=== PATIENT | female | born 1970 | race Caucasian/White ===

== ENCOUNTER 2016-07-18 02:44 | Observation (INO) | payer OTHER ==
[2016-07-18] MEDS ORDERED: Aspirin 81 MG Tab.Chew PO ONE (03:01)
[2016-07-18] MEDS ORDERED: Ketorolac 30 MG/ML SDV IVPUSH ONE (03:01)
[2016-07-18] MEDS ORDERED: Sodium Chloride 0.9% 1,000 ML IV ONE (03:01)
[2016-07-18] MEDS ORDERED: Ondansetron 4 MG/2 ML SDV IVPUSH ONE (03:01)
[2016-07-18] MEDS ORDERED: Nitroglycerin 0.4 MG Tab.SL SL ONE (03:02)
[2016-07-18] MEDS ORDERED: Nitroglycerin 0.4 MG Tab.SL ONE (03:04)
--- NOTE | 2016-07-18 03:04 | EDM.PDOC ---
ED HPI GENERAL MEDICAL PROBLEM - General Chief Complaint: Chest Pain Stated Complaint: CHEST PAIN Time Seen by Provider: 07/18/16 03:02 - History of Present Illness INITIAL COMMENTS - FREE TEXT/NARRATIVE: HISTORY AND PHYSICAL: History of present illness: Rations 46-year-old female present to insert a lower chest discomfort she described it as a band around her chest that started about 7 PM she had some nausea denies shortness of breath palpitations diaphoresis or other concerns she is a nonsmoker has no known history of coronary artery disease she has no GI history but reported either. She states she felt earlier that she might just eaten too much tonight. Review of systems: As per history of present illness and below otherwise all systems reviewed and negative. Past medical history: As per history of present illness and as reviewed below otherwise noncontributory. Surgical history: As per history of present illness and as reviewed below otherwise noncontributory. Social history: No reported history of drug or alcohol abuse. Family history: As per history of present illness and as reviewed below otherwise noncontributory. Physical exam: HEENT: Atraumatic, normocephalic, pupils reactive, negative for conjunctival pallor or scleral icterus, mucous membranes moist, throat clear, neck supple, nontender, trachea midline. Lungs: Clear to auscultation, breath sounds equal bilaterally, chest nontender. Heart: S1S2, regular, negative for clicks, rubs, or JVD. Abdomen: Soft, nondistended, nontender. Negative for masses or hepatosplenomegaly. Negative for costovertebral tenderness. Pelvis: Stable nontender. Genitourinary: Deferred. Rectal: Deferred. Extremities: Atraumatic, negative for cords or calf pain. Neurovascular unremarkable. Neuro: Awake, alert, oriented. Cranial nerves II through XII unremarkable. Cerebellum unremarkable. Motor and sensory unremarkable throughout. Exam nonfocal. Diagnostics: CBC CMP troponin PT/INR lipase chest x-ray EKG Therapeutics: IV O2 monitor aspirin 324 mg nitroglycerin sublingual Toradol 30 mg IV Impression: #1 chest pain Definitive disposition and diagnosis as appropriate pending reevaluation and review of above. - Related Data Allergies Allergy/AdvReac Type Severity Reaction Status Date / Time No Known Allergies Allergy Verified 07/18/16 03:02 Home Meds: Home Meds . [No Known Home Meds] 07/18/16 [History] ED ROS GENERAL - Review of Systems Review Of Systems: ROS reveals no pertinent complaints other than HPI. ED EXAM, GENERAL - Physical Exam Exam: See Below (See dictation) Course - Vital Signs Last Recorded V/S: Last Vital Signs Temp 36.6 C 07/18/16 03:06 Pulse 64 07/18/16 04:11 Resp 20 07/18/16 04:11 BP 118/75 07/18/16 04:11 Pulse Ox 98 07/18/16 04:11 - Orders/Labs/Meds Orders: Active Orders 24 hr Category Date Time Status Cardiac Monitoring [RC] . DIRECTED Care 07/18/16 02:56 Active EKG Documentation Completion [RC] STAT Care 07/18/16 02:56 Active Chest 1V Frontal [CR] Stat Exams 07/18/16 02:57 Taken Gallbladder [Abdomen Ltd] [US] Stat Exams 07/18/16 03:57 Taken Labs: Laboratory Tests 07/18/16 07/18/16 07/18/16 Range/Units 02:50 02:50 02:50 WBC 11.22 H (4.0-11.0) K/uL RBC 4.53 (4.30-5.90) M/uL Hgb 13.3 (12.0-16.0) g/dL Hct 39.5 (36.0-46.0) % MCV 87.2 (80.0-98.0) fL MCH 29.4 (27.0-32.0) pg MCHC 33.7 (31.0-37.0) g/dL RDW Std Deviation 41.8 (28.0-62.0) fl RDW Coeff of Adrien 13 (11.0-15.0) % Plt Count 293 (150-400) K/uL MPV 10.10 (7.40-12.00) fL Neut % (Auto) 74.9 (48.0-80.0) % Lymph % (Auto) 19.0 (16.0-40.0) % Blaine % (Auto) 5.8 (0.0-15.0) % Eos % (Auto) 0.1 (0.0-7.0) % Baso % (Auto) 0.2 (0.0-1.5) % Neut # 8.4 H (1.4-5.7) K/uL Lymph # 2.1 (0.6-2.4) K/uL Blaine # 0.7 (0.0-0.8) K/uL Eos # 0.0 (0.0-0.7) K/uL Baso # 0.0 (0.0-0.1) K/uL Nucleated RBC % 0.0 /100WBC Nucleated RBCs # 0 K/uL INR 1.03 (0.86-1.11) Sodium 138 (136-146) mmol/L Potassium 4.3 (3.5-5.1) mmol/L Chloride 105 (98-110) mmol/L Carbon Dioxide 22 (21-31) mmol/L BUN 16 (6.0-23.0) mg/dL Creatinine 0.9 (0.6-1.5) mg/dL Est Cr Clr Drug Dosing 68.88 mL/min Estimated GFR (MDRD) > 60.0 ml/min Glucose 126 H (60-110) mg/dL Calcium 9.6 (8.8-10.8) mg/dL Total Bilirubin 0.4 (0.1-1.5) mg/dL AST 25 (5-40) IU/L ALT 19 (8-54) IU/L Alkaline Phosphatase 64 (40-150) CK-MB (CK-2) 0.8 (0-6.6) ng/ml Troponin I (0.0-0.29) NG/ML Total Protein 7.8 (6.0-8.0) g/dL Albumin 4.3 (3.5-5.0) g/dL Globulin 3.5 (2.0-3.5) g/dL Albumin/Globulin Ratio 1.2 L (1.3-2.8) Lipase (7-80) U/L 07/18/16 07/18/16 Range/Units 02:50 02:50 WBC (4.0-11.0) K/uL RBC (4.30-5.90) M/uL Hgb (12.0-16.0) g/dL Hct (36.0-46.0) % MCV (80.0-98.0) fL MCH (27.0-32.0) pg MCHC (31.0-37.0) g/dL RDW Std Deviation (28.0-62.0) fl RDW Coeff of Adrien (11.0-15.0) % Plt Count (150-400) K/uL MPV (7.40-12.00) fL Neut % (Auto) (48.0-80.0) % Lymph % (Auto) (16.0-40.0) % Blaine % (Auto) (0.0-15.0) % Eos % (Auto) (0.0-7.0) % Baso % (Auto) (0.0-1.5) % Neut # (1.4-5.7) K/uL Lymph # (0.6-2.4) K/uL Blaine # (0.0-0.8) K/uL Eos # (0.0-0.7) K/uL Baso # (0.0-0.1) K/uL Nucleated RBC % /100WBC Nucleated RBCs # K/uL INR (0.86-1.11) Sodium (136-146) mmol/L Potassium (3.5-5.1) mmol/L Chloride (98-110) mmol/L Carbon Dioxide (21-31) mmol/L BUN (6.0-23.0) mg/dL Creatinine (0.6-1.5) mg/dL Est Cr Clr Drug Dosing mL/min Estimated GFR (MDRD) ml/min Glucose (60-110) mg/dL Calcium (8.8-10.8) mg/dL Total Bilirubin (0.1-1.5) mg/dL AST (5-40) IU/L ALT (8-54) IU/L Alkaline Phosphatase (40-150) CK-MB (CK-2) (0-6.6) ng/ml Troponin I < 0.10 (0.0-0.29) NG/ML Total Protein (6.0-8.0) g/dL Albumin (3.5-5.0) g/dL Globulin (2.0-3.5) g/dL Albumin/Globulin Ratio (1.3-2.8) Lipase 31 (7-80) U/L Meds: Medications Discontinued Medications Generic Name Dose Route Start Last Admin Trade Name Freq PRN Reason Stop Dose Admin Aspirin 324 mg 07/18/16 03:01 07/18/16 03:12 Aspirin PO 07/18/16 03:02 324 mg ONETIME ONE Administration Sodium Chloride 1,000 mls @ 999 mls/hr 07/18/16 03:01 07/18/16 03:16 Normal Saline IV 07/18/16 04:01 999 mls/hr STAT ONE Administration Ketorolac Tromethamine 30 mg 07/18/16 03:01 07/18/16 03:16 Toradol IVPUSH 07/18/16 03:02 30 mg ONETIME ONE Administration Morphine Sulfate 2 mg 07/18/16 04:03 07/18/16 04:10 Morphine IVPUSH 07/18/16 04:04 2 mg ONETIME ONE Administration Nitroglycerin Confirm 07/18/16 03:04 07/18/16 04:04 Nitrostat Administered 07/18/16 03:05 Not Given Dose 0.4 mg .ROUTE .STK-MED ONE Nitroglycerin 0.4 mg 07/18/16 03:02 07/18/16 03:15 Nitrostat SL 07/18/16 03:03 0.4 mg ONETIME ONE Administration Ondansetron HCl 4 mg 07/18/16 03:01 07/18/16 03:10 Zofran IVPUSH 07/18/16 03:02 4 mg ONETIME ONE Administration Departure - Departure Time of Disposition: 06:00 Disposition: Admitted As Inpatient 68 Condition: good Clinical Impression: Cholelithiasis, Abnormal EKG Forms: ED Department Discharge - My Orders Last 24 Hours: My Active Orders 07/18/16 02:56 Cardiac Monitoring [RC] . DIRECTED EKG Documentation Completion [RC] STAT 07/18/16 02:57 Chest 1V Frontal [CR] Stat 07/18/16 03:57 Gallbladder [Abdomen Ltd] [US] Stat - Assessment/Plan Last 24 Hours: My Active Orders 07/18/16 02:56 Cardiac Monitoring [RC] . DIRECTED EKG Documentation Completion [RC] STAT 07/18/16 02:57 Chest 1V Frontal [CR] Stat 07/18/16 03:57 Gallbladder [Abdomen Ltd] [US] Stat
[2016-07-18 03:24] LABS: CHLORIDE,CL 105 mmol/L (98-110); SODIUM,NA 138 mmol/L (136-146)
[2016-07-18] MEDS ORDERED: Morphine 10 MG/ML Syringe IVPUSH ONE (03:57)
[2016-07-18] MEDS ORDERED: Morphine 2 MG/ML Syringe IVPUSH ONE (04:03)
[2016-07-18] MEDS ORDERED: Morphine 10 MG/ML Syringe IVPUSH PRN (08:15)
[2016-07-18] MEDS ORDERED: Ondansetron 4 MG/2 ML SDV IVPUSH PRN (08:16)
[2016-07-18] MEDS ORDERED: Sodium Chloride 0.9% 1,000 ML IV SCH (08:30)
--- NOTE | 2016-07-18 08:31 | PCM.HP ---
<Vangie Redd M - Last Filed: 07/18/16 15:00> H&P History of Present Illness - General Date of Service: 07/18/16 Admit Problem/Dx: Admission Diagnosis/Problem Admission Diagnosis/Problem Cholelithiasis Source of Information: Patient History Limitations: Reports: No limitations - History of Present Illness Initial Comments - Free Text/Narative: This 46 year year old female with no significant pmh presented to the ED early this morning with concerns of upper abdominal/chest pain. She reports yesterday she made homemade lefse and ate "a bunch of it" with margarine on it. She then felt extremely full, slightly nauseated, felt like she had a belt around her high waist. This pain felt under her ribs and radiated to her back. She reports the pain continued to worsen throughout the day and she was unable to sleep through the pain and decided to come to the ER. She has been losing weight and has lost a large amount of weight. She is eats a low fat diet at home. She does not use tobacco products, drink alcohol or recreational drug use. In the ED, slight leukocytosis noted, 11,000. AST/ALT WNL. Troponin negative. EKG SR [address] segment changes. RUQ US obtained which revealed cholelithaisis, common bile duct 5 mm, diffuse fatty infiltration of liver. She will be admitted for observation due to chest pain R/O and cholelithasis. chest area Pain Score (Numeric/FACES): 3 - Related Data Allergies/Adverse Reactions: Allergies Allergy/AdvReac Type Severity Reaction Status Date / Time No Known Allergies Allergy Verified 07/18/16 03:02 Home Medications: Home Meds Bacillus Coagulans [Digestive Advantage] 1 tab PO DAILY 07/18/16 [History] Biotin 5 mg PO 07/18/16 [History] Past Medical History HEENT History: Reports: None Cardiovascular History: Reports: None. Denies: Afib, Blood clots/VTE/DVT, CAD, High cholesterol, Hypertension, [place] Respiratory History: Reports: None. Denies: Asthma, COPD, [place] Gastrointestinal History: Reports: None. Denies: GERD, GI bleed Genitourinary History: Reports: None. Denies: Acute renal failure, Chronic renal insuffiency [employer] History: Reports: Musculoskeletal History: Reports: None Neurological History: Reports: None. Denies: CVA, MS, TIA Psychiatric History: Reports: None Endocrine/Metabolic History: Reports: None. Denies: Diabetes, type II, Hypothyroidism, Obesity/BMI 30+ Hematologic History: Reports: None Oncologic (Cancer) History: Reports: None Dermatologic History: Reports: Other (see below) (Rosacea) - Infectious Disease History Infectious Disease History: Reports: Chicken pox - Past Surgical History Female Surgical History: Reports: Hysterectomy Social & Family History - Family History Family Medical History: Noncontributory - Tobacco Use Smoking Status *Q: Never Smoker Second Hand Smoke Exposure: No - Caffeine Use Caffeine Use: Reports: Coffee - Alcohol Use Alcohol Use History: No - Recreational Drug Use Recreational Drug Use: No H&P Review of Systems - Review of Systems: Review Of Systems: See Below General: Reports: no symptoms. Denies: fever, chills, malaise HEENT: Reports: no symptoms. Denies: headaches, post nasal drip, sinus congestion Cardiovascular: Reports: chest pain (epigastric). Denies: palpitations, edema, syncope Gastrointestinal: Reports: Abdominal pain, Nausea. Denies: Black stool, Bloody stool, Vomiting Genitourinary: Reports: no symptoms. Denies: dysuria, frequency, burning Musculoskeletal: Reports: no symptoms Skin: Reports: erythema (Rosacea exacerbation to cheeks) Psychiatric: Reports: no symptoms Neurological: Reports: no symptoms Hematologic/Lymphatic: Reports: no symptoms Immunologic: Reports: no symptoms Exam - Exam Exam: See Below - Vital Signs Vital Signs: Last Vital Signs Temp 96.6 F 07/18/16 06:25 Pulse 62 07/18/16 06:25 Resp 18 07/18/16 06:25 BP 118/76 07/18/16 06:25 Pulse Ox 100 07/18/16 06:25 Weight: 154 lb 11.2 oz - Exam Quality Assessment: DVT prophylaxis. No: supplemental oxygen General: alert, oriented, cooperative HEENT: PERRLA, Hearing intact, Mucosa moist & pink, Nares patent, Normal nasal septum, Posterior pharynx clear, Conjunctiva clear, EOMI, EACs clear, TMs clear Neck: supple, trachea midline, 2 Lungs: Clear to auscultation, Normal respiratory effort Cardiovascular: regular rate, regular rhythm, normal S1, normal S2 Abdomen: normal bowel sounds, soft, tenderness (slight tenderness to epigastric and RUQ, has improved greatly since ED), Mckinney's sign. No: organomegaly Extremities: normal inspection, normal pulses Neuro Extensive - Mental Status: alert, oriented x3, normal mood/affect, normal cognition Neuro Extensive - Motor, Sensory, Reflexes: CN II-XII intact, normal gait, normal reflexes Psychiatric: alert, normal affect, normal mood - Patient Data Result Diagrams: 07/18/16 14:27 07/18/16 02:50 EKG INTERPRETATION EKG Date: 07/18/16 Rhythm: NSR Rate (beats/min): 69 [place]: normal P-wave: present QRS: normal ST-T: normal QT: normal Comparison: NA - no prior EKG *Q Meaningful Use (ADM) - VTE *Q VTE Criteria *Q: - VTE Risk Assess *Q Each Risk Factor Represents 1 Point: Age 41 - 59 years Total Score 1 Point Risk Factors: 1 Each Risk Factor Represents 2 Points: None Total Score 2 Point Risk Factors: 0 Each Risk Factor Represents 3 Points: None Total Score 3 Point Risk Factors: 0 Each Risk Factor Represents 5 Points: None Total Score 5 Point Risk Factors: 0 Venous Thromboembolism Risk Factor Score *Q: 1 - Stroke *Q Stroke Criteria *Q: - AMI *Q AMI Criteria *Q: - Problem List (1) Atypical chest pain SNOMED Code(s): 210650792 ICD Code: R07.89 - OTHER CHEST PAIN Status: Acute (2) Cholelithiasis SNOMED Code(s): 286246131 ICD Code: K80.20 - CALCULUS OF GALLBLADDER W/O CHOLECYSTITIS W/O OBSTRUCTION Status: Acute Qualifiers: Cholelithiasis location: gallbladder Cholecystitis presence: without cholecystitis Biliary obstruction: without biliary obstruction Qualified Code(s): K80.20 - Calculus of gallbladder without cholecystitis without obstruction Problem List Initiated/Reviewed/Updated: Yes Orders Last 24hrs: Active Orders 24 hr Category Date Time Status Antiembolic Devices [RC] PER UNIT ROUTINE Care 07/18/16 08:16 Active Intake and Output [RC] QSHIFT Care 07/18/16 08:15 Active Oxygen Therapy [RC] PRN Care 07/18/16 08:15 Active Telemetry Monitoring [Cardiac Monitoring] [RC] . Care 07/18/16 06:15 Active DIRECTED Up to Chair [RC] ASDIRECTED Care 07/18/16 08:15 Active VTE/DVT Education [RC] PER UNIT ROUTINE Care 07/18/16 08:15 Active Vital Signs [RC] Q4H Care 07/18/16 08:15 Active Clear Liquid Diet [DIET] Diet 07/18/16 Breakfast Active GLYCOSYLATED HEMOGLOBIN,HGBA1C [CHEM] Routine Lab 07/18/16 08:16 Ordered LIPID PANEL [CHEM] Routine Lab 07/18/16 08:16 Ordered TROPONIN I [CHEM] Q6H Lab 07/18/16 08:30 Ordered TROPONIN I [CHEM] Q6H Lab 07/18/16 14:30 Ordered Morphine Med 07/18/16 08:15 Active 2 mg IVPUSH Q2H PRN Ondansetron [Zofran] Med 07/18/16 08:16 Active 4 mg IVPUSH Q4H PRN Sodium Chloride 0.9% [Normal Saline] 1,000 ml Med 07/18/16 08:30 Active IV ASDIRECTED Sequential Compression Device [OM.PC] Per Unit Routine Oth 07/18/16 08:16 Ordered Resuscitation Status Routine Resus Stat 07/18/16 08:15 Ordered Medication Orders Sodium Chloride (Normal Saline) 1,000 mls @ 125 mls/hr IV ASDIRECTED BIPIN Morphine Sulfate (Morphine) 2 mg IVPUSH Q2H PRN PRN Reason: Pain (severe 7-10) Ondansetron HCl (Zofran) 4 mg IVPUSH Q4H PRN PRN Reason: Nausea Assessment/Plan Comment:: This 46 year old female admitted for chest pain r/o ACS and cholelithiasis 1. Chest pain: Lipid panel and A1c drawn. A1c 5.5 and LDL 90, HDL 61. Trop x2 negative. Telemetry SR with no ST segment changes. Not having chest pain, more upper abdomen and RUQ. 2. Cholelithiasis: May have passed a stone. Pain is drastically improved this morning. She received 1 dose of Morphine in the ED. Tolerating CL diet. Spoke with Dr. Liang regarding patient. He recommends if afebrile and no elevated WBC and no cholecystitis she can follow up in the clinic with him next week to schedule elective cholecystectomy. VTE: SCDs Dispo: Likely discharge later today after 3rd troponin DISCHARGE PLAN: Patient was observed here on telemetry. Serial troponins were continued and were all negative, ruling out ACS. Spoke with Dr. Liang regarding cholelithaisis, he will follow up with patient as outpatient. Continue LF bland diet at home. She agrees with plan and is eager for discharge home. Appointment arranged with Dr Liang next week. <Oniel Dunaawy - Last Filed: 07/18/16 16:22> H&P History of Present Illness - General Admit Problem/Dx: Admission Diagnosis/Problem Admission Diagnosis/Problem Cholelithiasis Exam - Vital Signs Vital Signs: Last Vital Signs Temp 97.4 F 07/18/16 15:50 Pulse 76 07/18/16 15:50 Resp 22 H 07/18/16 15:50 BP 102/66 07/18/16 15:50 Pulse Ox 99 07/18/16 15:50 - Patient Data Lab Results last 24 hrs: Laboratory Results - last 24 hr 07/18/16 07/18/16 07/18/16 Range/Units 08:40 14:27 14:27 WBC 8.96 (4.0-11.0) K/uL RBC 3.87 L (4.30-5.90) M/uL Hgb 11.3 L (12.0-16.0) g/dL Hct 34.1 L (36.0-46.0) % MCV 88.1 (80.0-98.0) fL MCH 29.2 (27.0-32.0) pg MCHC 33.1 (31.0-37.0) g/dL RDW Std Deviation 42.8 (28.0-62.0) fl RDW Coeff of Adrien 13 (11.0-15.0) % Plt Count 233 (150-400) K/uL MPV 10.10 (7.40-12.00) fL Nucleated RBC % 0.0 /100WBC Nucleated RBCs # 0 K/uL Troponin I < 0.10 < 0.10 (0.0-0.29) NG/ML Result Diagrams: 07/18/16 14:27 07/18/16 02:50 *Q Meaningful Use (ADM) - VTE *Q VTE Criteria *Q: - Stroke *Q Stroke Criteria *Q: - AMI *Q AMI Criteria *Q: - Problem List (1) Biliary colic SNOMED Code(s): 71630381 ICD Code: K80.50 - CALCULUS OF BILE DUCT W/O CHOLANGITIS OR CHOLECYST W/O OBST Status: Acute (2) Cholelithiasis SNOMED Code(s): 522356227 ICD Code: K80.20 - CALCULUS OF GALLBLADDER W/O CHOLECYSTITIS W/O OBSTRUCTION Status: Acute Qualifiers: Cholelithiasis location: gallbladder Cholecystitis presence: without cholecystitis Biliary obstruction: without biliary obstruction Qualified Code(s): K80.20 - Calculus of gallbladder without cholecystitis without obstruction Orders Last 24hrs: Active Orders 24 hr Category Date Time Status Antiembolic Devices [RC] PER UNIT ROUTINE Care 07/18/16 08:16 Active Discontinue Telemetry Monitoring [Cardiac Monitoring Care 07/18/16 15:54 Active Discontinue] [RC] Click To Edit Intake and Output [RC] Q12H Care 07/18/16 08:15 Active Ready for Discharge [RC] PER UNIT ROUTINE Care 07/18/16 14:56 Active Telemetry Monitoring [Cardiac Monitoring] [RC] . Care 07/18/16 06:15 Active DIRECTED Up to Chair [RC] ASDIRECTED Care 07/18/16 08:15 Active Vital Signs [RC] Q4H Care 07/18/16 08:15 Active Sequential Compression Device [OM.PC] Per Unit Routine Oth 07/18/16 08:16 Ordered Resuscitation Status Routine Resus Stat 07/18/16 08:15 Ordered Assessment/Plan Comment:: repeat Cbc in the afternoon showed a WBC of 8.
[2016-07-18 15:52] VITALS: BP 102/66
--- NOTE | 2016-07-18 15:52 | CR ---
EXAM DATE: 07/18/16 PATIENT'S AGE: 46 Patient: JACKIE VILLARREAL Facility: [place], [place] Site . Site : 1970 Study: XRay Chest [id number]/9/2017 3:16:58 AM Ordering Physician: Doctor Angel Final Report: INDICATION: CHEST PAIN N/V TECHNIQUE: Chest 1 view COMPARISON: None FINDINGS: Cardiovascular and mediastinum: Heart size and vasculature are normal in caliber and appearance. Mediastinum is within normal limits. Lungs and pleural space: No focal consolidation. No sign of pleural effusion. No pneumothorax. Bones and soft tissues: No significant findings. IMPRESSION: No acute cardiopulmonary disease. Dictated by Shar Pickett MD @ 07/18/2016 3:19:19 AM Dictated by: Shar Pickett MD @ 07/18/2016 03:19:30 (Electronic Signature) MReport Signed by Proxy and Original Signed Document filed in the Medical Record. JOSE
--- NOTE | 2016-07-18 15:53 | US ---
EXAM DATE: 07/18/16 PATIENT'S AGE: 46 Patient: JACKIE VILLARREAL Facility: [place], [place] Site . Site : 1970 Study: US Abdomen [id number]/9/2017 4:51:10 AM Ordering Physician: Mariana Rodas Final Report: INDICATION: UPPER ABD PAIN TECHNIQUE: Ultrasound abdomen limited. Sonographic images of the right upper quadrant were obtained using messina-scale and color Doppler images. COMPARISON: None FINDINGS: Liver: Normal in size mild diffuse increased echotexture. No masses. No intrahepatic biliary dilatation. Gallbladder: Cholelithiasis. Normal wall thickness. No pericholecystic fluid. Common bile duct: 5 mm. Pancreas: The imaged portion is unremarkable. Right kidney: 11 cm. Normal echotexture and cortex. No masses, stones, or hydronephrosis. Vasculature: Proximal abdominal aorta and IVC are normal. IMPRESSION: 1. Cholelithiasis. 2. Diffuse fatty infiltration of the liver. Dictated by Shar Pickett MD @ 07/18/2016 5:41:51 AM Dictated by: Shar Pickett MD @ 07/18/2016 05:42:05 (Electronic Signature) Report Signed by Proxy and Original Signed Document filed in the Medical Record. [facility]
== END 2016-07-18 16:04 | disposition home or self-care (01) ==
LOC: MW.ED 02:44 → MW.MS 06:01
PROVIDERS: ADMIT Internal Medicine; ATTEND Internal Medicine
DX: K80.20 Calculus of gallbladder without cholecystitis without obstruction (principal); Z79.899 Other long term (current) drug therapy; Z88.8 Allergy status to other drugs, medicaments and biological substances; Z90.710 Acquired absence of both cervix and uterus
CPT/HCPCS: 36415; 71010; 76705; 80053; 80061; 82553; 83036; 83690; 84484; 85025; 85027; 85610; 93005; 96361; 96374; 96375; 99285; A9270; J1885; J2270; J2405; J7040; G0378

== ENCOUNTER 2016-08-19 09:14 | Day surgery (SDC) | payer OTHER ==
[~2016-08-19 09:14] MED LIST: Lactated Ringers 1,000 ML IV SCH; cefOXitin 1 GM in Premix Bag 1 BAG IV SCH
--- NOTE | 2016-08-19 09:53 | PCM.PREANE ---
Preanesthetic Assessment - Anesthesia/Transfusion/Family Hx Anesthesia History: Prior Anesthesia Without Reaction Family History of Anesthesia Reaction: No Transfusion History: No Prior Transfusion(s) - Review of Systems General: No Symptoms Pulmonary: No Symptoms Cardiovascular: No Symptoms Gastrointestinal: No symptoms Neurological: No Symptoms Other: Reports: None - Physical Assessment NPO Status Date: 08/18/16 Height: 1.63 m Weight: 71.214 kg ASA Class: 1 Mental Status: Alert & Oriented x3 Airway Class: Mallampati = 2 Dentition: Reports: Normal Dentition ROM/Head Extension: Full Lungs: Clear to auscultation Cardiovascular: Regular Rate - Allergies Allergies/Adverse Reactions: Allergies Allergy/AdvReac Type Severity Reaction Status Date / Time No Known Allergies Allergy Verified 07/18/16 03:02 - Anesthesia Plan Pre-Op Medication Ordered: None - Acknowledgements Anesthesia Type Planned: General Anesthesia Pt an Appropriate Candidate for the Planned Anesthesia: Yes Alternatives and Risks of Anesthesia Discussed w Pt/Guardian: Yes Pt/Guardian Understands and Agrees with Anesthesia Plan: Yes PreAnesthesia Questionnaire HEENT History: Reports: None Cardiovascular History: Reports: None. Denies: Afib, Blood clots/VTE/DVT, CAD, High cholesterol, Hypertension, [place] Respiratory History: Reports: Asthma Other Respiratory History: asthma as a child Gastrointestinal History: Reports: None. Denies: GERD, GI bleed Genitourinary History: Reports: None [employer] History: Reports: Musculoskeletal History: Reports: Fracture Other Musculoskeletal History: hx surgical repair of fx rt ankle with screw insertion Neurological History: Reports: None. Denies: CVA, MS, TIA Psychiatric History: Reports: None Endocrine/Metabolic History: Reports: None. Denies: Diabetes, type II, Hypothyroidism, Obesity/BMI 30+ Hematologic History: Reports: None Oncologic (Cancer) History: Reports: None Dermatologic History: Reports: Psoriasis Other Dermatologic History: acne rosacea, papular type - Infectious Disease History Infectious Disease History: Reports: Chicken pox - Past Surgical History Head Surgeries/Procedures: Reports: None Female Surgical History: Reports: Hysterectomy Other Female Surgeries/Procedures: partial hysterectomy, - SUBSTANCE USE Smoking Status *Q: Never Smoker Second Hand Smoke Exposure: No Recreational Drug Use History: No - HOME MEDS Home Medications: Home Meds Bacillus Coagulans [Digestive Advantage] 1 tab PO DAILY 03/09/17 [History] Biotin 5 mg PO DAILY 07/18/16 [History] Benzoyl Peroxide [Acne Cream] 1 applic TOP ASDIRECTED PRN 08/14/16 [History] - CURRENT (IN HOUSE) MEDS Current Meds: Current Medications Lactated Ringer's (Ringers, Lactated) 1,000 mls @ 125 mls/hr IV ASDIRECTED BIPIN Cefoxitin Sodium 1 gm/ Premix 50 mls @ 100 mls/hr IV ONETIME BIPIN Preanesthetic Assessment - ANESTHESIA/TRANSFUSION/FAMILY HX Family History of Anesthesia Reaction: No - PHYSICAL ASSESSMENT Height: 1.63 m Weight: 71.214 kg - ALLERGIES Allergies/Adverse Reactions: Allergies Allergy/AdvReac Type Severity Reaction Status Date / Time No Known Allergies Allergy Verified 07/18/16 03:02
[2016-08-19] MEDS ORDERED: fentaNYL 250 MCG/5 ML SDV ONE (10:37)
[2016-08-19] MEDS ORDERED: Propofol 200 MG/20 ML SDV ONE (10:37)
[2016-08-19] MEDS ORDERED: Dexamethasone 4 MG/ML 5 ML MDV ONE (10:37)
[2016-08-19] MEDS ORDERED: Ondansetron 4 MG/2 ML SDV ONE (10:37)
[2016-08-19] MEDS ORDERED: Midazolam 1 MG/ML 2 ML SDV ONE (10:37)
[2016-08-19] MEDS ORDERED: Rocuronium 10 MG/ML 10 ML Syringe ONE (10:37)
[2016-08-19] MEDS ORDERED: fentaNYL 100 MCG/2 ML SDV IVPUSH PRN (10:53)
[2016-08-19] MEDS ORDERED: Bupivacaine 0.5% 10 ML SDV ONE (11:04)
[2016-08-19] MEDS ORDERED: ceFAZolin 1 GM Vial ONE (11:05)
[2016-08-19] MEDS ORDERED: HYDROmorphone 2 MG/ML Syringe ONE (11:57)
[2016-08-19] MEDS ORDERED: Neostigmine Methylsulfate 1 MG/ML 5 ML Syringe ONE (12:17)
[2016-08-19] MEDS ORDERED: Ketorolac 30 MG/ML SDV ONE (12:18)
[2016-08-19] MEDS ORDERED: Lactated Ringers 1,000 ML IV SCH (12:45)
[2016-08-19] MEDS ORDERED: Morphine 10 MG/ML Syringe IVPUSH PRN (12:45)
[2016-08-19] MEDS ORDERED: Acetaminophen/HYDROcodone 325-5 MG Tab PO PRN (12:45)
[2016-08-19] MEDS ORDERED: Ondansetron 4 MG/2 ML SDV IVPUSH PRN (12:45)
--- NOTE | 2016-08-19 12:47 | PCM.OPNOTE ---
- General Post-Op/Procedure Note Date of Surgery/Procedure: 08/19/16 Operative Procedure(s): Laparoscopic cholecystectomy Pre Op Diagnosis: Symptomatic cholelithiasis Post-Op Diagnosis: Symptomatic cholelithiasis with cholecystitis Anesthesia Technique: General ET tube (ASA II) Primary Surgeon: Alexx Liang Fluid Replacement, Intraop: 1,700 EBL in mLs: 15 Condition: Good Free Text/Narrative:: Dictation [id number]
[2016-08-19] MEDS ORDERED: Promethazine 25 MG/ML SDV IM ONE (13:23)
[2016-08-19] MEDS ORDERED: Scopolamine 1.5 MG Transdermal Patch TRDERM PRN (13:24)
--- NOTE | 2016-08-19 13:25 | PCM.POSTAN ---
POST ANESTHESIA ASSESSMENT - MENTAL STATUS Mental Status: alert, oriented - RESPIRATORY Respiratory Status: respiratory rate WNL, airway patent, O2 saturation stable - CARDIOVASCULAR CV Status: pulse rate WNL, blood pressure stable - GASTROINTESTINAL GI Status: nauseau Free Text/Narrative:: orders given - PAIN Pain Score: 0 - POST OP HYDRATION Hydration Status: adequate & stable
[2016-08-19] MEDS ORDERED: Haloperidol Lactate 5 MG/ML SDV IV ONE (14:53)
[2016-08-19] MEDS ORDERED: Haloperidol Lactate 5 MG/ML SDV IM ONE (15:50)
--- NOTE | 2016-08-19 15:59 | PCM48HPAN ---
Post Anesthesia Note - EVALUATION WITHIN 48HRS OF ANESTHETIC Vital Signs in Normal Range: Yes Patient Participated in Evaluation: Yes Respiratory Function Stable: Yes Airway Patent: Yes Cardiovascular Function Stable: Yes Hydration Status Stable: Yes Pain Control Satisfactory: Yes Nausea and Vomiting Control Satisfactory: Yes (some persistant nausea despite zofran and haldol.) Mental Status Recovered: Yes
[2016-08-19 18:03] VITALS: BP 108/60
--- NOTE | 2016-08-19 20:37 | OR ---
SURGEON: Alexx Liang M.D. DATE OF PROCEDURE: 08/19/2016 OPERATION PERFORMED: Laparoscopic cholecystectomy. DIVISION ORDER ANALYST: Adore Pitt, MS 4. ANESTHESIA: General endotracheal. ASA CLASSIFICATION: II. PREOPERATIVE DIAGNOSIS: Symptomatic cholelithiasis. POSTOPERATIVE DIAGNOSIS: Cholelithiasis with cholecystitis. ESTIMATED BLOOD LOSS: 15 mL. INTRAOPERATIVE FLUID REPLACEMENT: 1700 mL of crystalloid. DESCRIPTION OF PROCEDURE: The patient was taken to the operating room and placed on the operating table in a supine position. Time-out was called for appropriate identification of the patient and procedure. Thigh-high Steven's and sequential compression boots had been placed. Following satisfactory attainment of general endotracheal anesthesia, a Parikh catheter was placed in the patient's urinary bladder. The abdomen was prepped with DuraPrep solution. Sterile drapes were applied. The skin just below the umbilicus was infiltrated with 0.5% Marcaine solution. The skin incision was made and deepened through the subcutaneous tissue obtaining hemostasis with the use of electrocautery. Veress needle was introduced into the peritoneal cavity. Saline drop test was positive. A 5-mm camera and port were placed through the infraumbilical incision. Under camera vision, 12-mm subxiphoid, 5-mm midclavicular, and 5-mm anterior axillary ports were placed. Each incision had preemptively been infiltrated with 0.5% Marcaine solution. The gallbladder was grasped. Adhesions were taken down and the cholecystohepatic triangle was dissected free obtaining good critical view. The cystic duct and cystic artery were hemo-clipped and divided between the laparoscopic Metzenbaum scissors. The gallbladder was then dissected away from its bed using electrocautery. Once the gallbladder was amputated, this was placed in an Endopouch. The right hand positioned out of harm's way. The bed of the gallbladder was inspected for hemostasis. Minimal oozing was noted. No bile leak. The right upper quadrant was irrigated with saline solution. All fluid was aspirated. Surgicel was placed into the bed of the gallbladder. The right hemidiaphragm was then irrigated with 250 mL of normal saline with 20 mL of 0.5% Marcaine solution. That fluid was left in situ. The 12-mm subxiphoid, 5-mm midclavicular, and anterior axillary ports were removed under camera vision. Finally, the infraumbilical camera and port were removed. The wounds were inspected for hemostasis. Small bleeding sites were electrocoagulated. The subxiphoid and infraumbilical incisions were closed in 2 layers approximating the subcutaneous tissue with 3-0 Polysorb and the skin with subcuticular 4-0 Monocryl. The anterior axillary and midclavicular incisions were closed with subcuticular 4-0 Monocryl. All incisions were Steri-Stripped and dressed with sterile Tegaderm pads. Sponge, needle, and instrument counts were all correct. Parikh catheter was removed prior to emergence from anesthesia. Following emergence from anesthesia and extubation, the patient was taken to recovery room in stable condition. SHERIF PALOMO /[id number]
== END 2016-08-19 17:00 | disposition home or self-care (01) ==
LOC: MW.SDS 09:14
PROVIDERS: ATTEND Surgery
DX: K80.10 Calculus of gallbladder with chronic cholecystitis without obstruction (principal); Z90.710 Acquired absence of both cervix and uterus
CPT/HCPCS: 47562; 88304; A9270; J0694; J1100; J1170; J1630; J1885; J2250; J2405; J3010; J7120; 00790; J0690; J2704